=== PATIENT | female | born 1950 | race Caucasian/White ===

== ENCOUNTER 2019-10-17 21:57 | Inpatient (IN) ==
[2019-10-18] MEDS ORDERED: Ondansetron 4 mg VIAL 2 MG/ML 2 ml VIAL IV PRN (00:27)
[2019-10-18] MEDS ORDERED: Heparin 5000 UNITS/ML VIAL(*) 1 ml vial SUBCUT ONE (00:42)
[2019-10-18] MEDS ORDERED: PHENOBARBITAL 30 MG PO ONE (01:12)
[2019-10-18] MEDS ORDERED: PHENYTOIN 50 MG PO ONE (01:15)
[2019-10-18 03:50] LABS: ABS Lymphocytes 1.1 10^3/ul (1.0-4.8); ABS Monocytes 0.6 10^3/ul (0-0.8); Eosinophil % 0.4 %; Hematocrit 34 % (35-47); Hemoglobin 11.1 g/dL (12.0-16.0); Lymphocyte % 19.3 %; Mean Corpuscular HGB Conc 33 g/dL (31-36); Mean Corpuscular Hemoglobin 31 pg (27-31); Mean Corpuscular Volume 93 fL (80-97); Mean Platelet Volume 8.8 fL (7.4-10.4); Platelet Count 183 10^3/uL (150-450); Red Blood Count 3.59 10^6 /uL (3.70-4.87); Red Cell Distribution Width 16 % (10-15); White Blood Count 5.8 10^3/uL (3.5-10.8)
[2019-10-18 03:56] LABS: INR 1.27 (0.82-1.09)
[2019-10-18 04:07] LABS: Albumin 3.4 g/dL (3.2-5.2); Albumin/Globulin Ratio 1.3 (1-3); BUN/Creatinine Ratio 44.4 (8-20); Calcium 8.6 mg/dL (8.6-10.3); EGFR African American 217.6 (>60); EGFR Non-African American 179.8 (>60); Globulin 2.7 g/dL (2-4); Potassium 3.9 mmol/L (3.5-5.0); Total Bilirubin 0.3 mg/dL (0.2-1.0); Total Protein 6.1 g/dL (6.4-8.9)
[2019-10-18] MEDS ORDERED: Morphine 2 MG/ML SYRINGE IV PRN (11:02)
[2019-10-18] MEDS ORDERED: Morphine 2 MG/ML SYRINGE ONE (11:32)
[2019-10-18] MEDS ORDERED: oxyCODONE/Acetamin 5/325 mg TAB PO PRN (14:59)
[2019-10-18] MEDS: Heparin 5000 UNITS/ML VIAL(*) 1 ml vial SUBCUT SCH ×2 (15:56→22:14)
[2019-10-18 16:26] LABS: ABS Eosinophils 0.1 10^3/ul (0-0.6); ABS Lymphocytes 1.1 10^3/ul (1.0-4.8); ABS Monocytes 0.5 10^3/ul (0-0.8); Eosinophil % 1.6 %; Hematocrit 34 % (35-47); Hemoglobin 11.3 g/dL (12.0-16.0); Lymphocyte % 25.4 %; Mean Corpuscular HGB Conc 34 g/dL (31-36); Mean Corpuscular Hemoglobin 32 pg (27-31); Mean Corpuscular Volume 94 fL (80-97); Mean Platelet Volume 8.7 fL (7.4-10.4); Platelet Count 174 10^3/uL (150-450); Red Blood Count 3.59 10^6 /uL (3.70-4.87); Red Cell Distribution Width 16 % (10-15); White Blood Count 4.1 10^3/uL (3.5-10.8)
[2019-10-18 16:34] LABS: Activated Partial Thrombo Time 30.5 seconds (26.0-38.0); INR 1.24 (0.82-1.09)
[2019-10-18 17:14] LABS: EGFR African American 168.2 (>60)
[2019-10-18 23:30] LABS: Urine Appearance Cloudy; Urine Bilirubin Negative (Negative); Urine Blood Negative (Negative); Urine Color Yellow; Urine Glucose Negative (Negative); Urine Ketones Negative (Negative); Urine Nitrite Negative (Negative); Urine Protein Negative (Negative); Urine Specific Gravity 1.014 (1.010-1.030); Urine Urobilinogen Negative (Negative)
[2019-10-18 23:34] LABS: Urine Bacteria 1+ (Absent); Urine Red Blood Cell Absent (Absent); Urine Squamous Epithelial Cell Present (Absent); Urine White Blood Cell 1+(6-10/hpf) (Absent)
[2019-10-19 06:17] LABS: ABS Eosinophils 0.1 10^3/ul (0-0.6); ABS Lymphocytes 1.1 10^3/ul (1.0-4.8); ABS Monocytes 0.5 10^3/ul (0-0.8); Hematocrit 32 % (35-47); Hemoglobin 10.6 g/dL (12.0-16.0); Lymphocyte % 26.6 %; Mean Corpuscular HGB Conc 34 g/dL (31-36); Mean Corpuscular Hemoglobin 32 pg (27-31); Mean Corpuscular Volume 94 fL (80-97); Mean Platelet Volume 9.6 fL (7.4-10.4); Platelet Count 157 10^3/uL (150-450); Red Blood Count 3.36 10^6 /uL (3.70-4.87); Red Cell Distribution Width 16 % (10-15)
[2019-10-19 06:29] LABS: INR 1.24 (0.82-1.09)
[2019-10-19 06:34] LABS: BUN/Creatinine Ratio 45.7 (8-20); Calcium 8.1 mg/dL (8.6-10.3); EGFR African American 224.7 (>60); EGFR Non-African American 185.7 (>60); Potassium 3.7 mmol/L (3.5-5.0)
[2019-10-19] MEDS: PHENOBARBITAL 30 MG PO SCH ×2 (09:02→20:07)
[2019-10-19] MEDS ORDERED: Famotidine IV 10 MG/ML 2 ml VIAL (20 mg) IV ONE (10:26)
[2019-10-19] MEDS ORDERED: Lactated Ringers 1000 ml BAG 1,000 ML IV SCH ×2 (11:00→19:15)
[2019-10-19] MEDS ORDERED: Magnesium Hydroxide LIQ 30 ML UDC PO PRN (14:09)
[2019-10-19] MEDS ORDERED: Senna TAB 8.6 mg TAB PO PRN (14:09)
[2019-10-19 14:54] LABS: TSH (Thyroid Stimulating Horm) 3.29 mcIU/mL (0.34-5.60)
[2019-10-19] MEDS ORDERED: Famotidine IV 10 MG/ML 2 ml VIAL (20 mg) ONE (16:20)
[2019-10-19] MEDS ORDERED: Clindamycin 900 MG/D5W BAG(*) 900 MG/50 ML BAG IVPB ONE (16:21)
[2019-10-19] MEDS ORDERED: Metoclopramide 5 MG/ML VIAL (10 mg) ONE (16:56)
[2019-10-19] MEDS ORDERED: Rocuronium 50 mg VIAL 10 mg/ml 5 ml VIAL (50 mg) ONE (16:56)
[2019-10-19] MEDS ORDERED: Propofol 10 MG/ML 20 ML BTL ONE (16:56)
[2019-10-19] MEDS ORDERED: Lidocaine 2% PF 5 ML VIAL ONE (16:56)
[2019-10-19] MEDS ORDERED: fentaNYL 100 mcg/2 ml 50 MCG/ML VIAL ONE (16:56)
[2019-10-19] MEDS ORDERED: Ondansetron 4 mg VIAL 2 MG/ML 2 ml VIAL ONE (17:15)
[2019-10-19] MEDS ORDERED: Naloxone 0.4 mg VIAL 0.4 mg/ml 1 ml VIAL IV PRN (17:44)
[2019-10-19] MEDS ORDERED: Ondansetron 4 mg VIAL 2 MG/ML 2 ml VIAL IV PRN (17:44)
[2019-10-19] MEDS ORDERED: fentaNYL 100 mcg/2 ml 50 MCG/ML VIAL IV PRN (17:44)
[2019-10-19] MEDS: Heparin 5000 UNITS/ML VIAL(*) 1 ml vial SUBCUT SCH (20:10)
[2019-10-19] MEDS ORDERED: PHENYTOIN 50 MG PO SCH (21:00)
[2019-10-20 05:47] LABS: Hematocrit 30 % (35-47); Hemoglobin 10.3 g/dL (12.0-16.0); Mean Corpuscular HGB Conc 34 g/dL (31-36); Mean Corpuscular Hemoglobin 32 pg (27-31); Mean Corpuscular Volume 94 fL (80-97); Mean Platelet Volume 9.3 fL (7.4-10.4); Platelet Count 154 10^3/uL (150-450); Red Blood Count 3.22 10^6 /uL (3.70-4.87); Red Cell Distribution Width 15 % (10-15); White Blood Count 3.9 10^3/uL (3.5-10.8)
[2019-10-20] MEDS: Heparin 5000 UNITS/ML VIAL(*) 1 ml vial SUBCUT SCH ×2 (06:00→14:33)
[2019-10-20 06:03] LABS: BUN/Creatinine Ratio 43.8 (8-20); Calcium 8.1 mg/dL (8.6-10.3); EGFR African American 249.2 (>60); Magnesium 1.7 mg/dL (1.9-2.7); Potassium 3.7 mmol/L (3.5-5.0)
[2019-10-20] MEDS ORDERED: PHENYTOIN 50 MG PO SCH (07:30)
[2019-10-20] MEDS ORDERED: Polyethylene Glycol 3350 17 GM PACKET PO SCH (09:00)
[2019-10-20] MEDS ORDERED: Potassium Chlor 10 meq TAB PO SCH (09:00)
[2019-10-20] MEDS: PHENOBARBITAL 30 MG PO SCH (09:19)
[2019-10-20 16:03] VITALS: BP 122/50
== END 2019-10-20 17:43 | disposition home or self-care (01) | DRG 563 ==
LOC: SSU 23:29
PROVIDERS: ADMIT Pediatrics; ATTEND Internal Medicine